=== PATIENT | male | born 1985 | race Caucasian/White ===

== ENCOUNTER 2017-10-23 15:21 | Emergency (ER) | payer MEDICAID, OTHER ==
[~2017-10-23] VITALS: Ht 6038.7 cm; Wt 74.8 kg
[2017-10-23] MEDS ORDERED: thiamine 100mg tablet PO ONE (15:30)
[2017-10-23] MEDS ORDERED: phenobarbital inj 260 MG in normal saline 100ml IV soln 99 ML IV STA (15:30)
[2017-10-23] MEDS ORDERED: normal saline 1000ML IV soln IVB ONE (15:30)
[2017-10-23] MEDS ORDERED: magnesium oxide 400mg tablet PO ONE (15:30)
[2017-10-23 15:53] LABS: URINE AMPHETAMINE SCREEN NEGATIVE (Neg); URINE BARBITUATE SCREEN NEGATIVE (Neg); URINE BENZODIAZEPINES SCREEN NEGATIVE (Neg); URINE CANNABINOID SCREEN NEGATIVE (Neg); URINE COCAINE SCREEN NEGATIVE (Neg); URINE METHADONE SCREEN NEGATIVE (Neg); URINE OPIATE SCREEN NEGATIVE (Neg); URINE PHENCYCLIDINE SCREEN NEGATIVE (Neg)
[2017-10-23 16:02] LABS: BASOPHILS % (AUTO) 0.3 % (0-1); EOSINOPHILS # (AUTO) 0.1 X10'3 (0-0.9); EOSINOPHILS % (AUTO) 0.8 % (0-6); HEMATOCRIT 48.8 % (42.0-52.0); HEMOGLOBIN 17.2 g/dl (14.0-17.9); LYMPHOCYTES # (AUTO) 2.1 X10'3 (1.1-4.8); LYMPHOCYTES % (AUTO) 20.4 % (21-51); MEAN CORPUSCULAR HEMOGLOBIN 30.4 PG (27.0-31.0); MEAN CORPUSCULAR HGB CONC 35.3 % (33.0-36.5); MEAN PLATELET VOLUME 6.9 FL (7.4-10.4); MONOCYTES # (AUTO) 0.3 X10'3 (0-0.9); MONOCYTES % (AUTO) 3.3 % (2-12); NEUTROPHILS # (AUTO) 7.7 X10'3 (1.8-7.7); NEUTROPHILS % (AUTO) 75.2 % (42-75); PLATELET COUNT 278 X10'3 (140-440); RED BLOOD COUNT 5.68 X10'6 (4.70-6.10); WHITE BLOOD COUNT 10.2 X10'3 (4.5-11.0)
[2017-10-23 16:24] LABS: ALANINE AMINOTRANSFERASE 39 U/L (12-78); ALBUMIN 4.9 G/DL (3.4-5.0); ALBUMIN/GLOBULIN RATIO 1.5 (1.1-1.5); ALKALINE PHOSPHATASE 100 IU/L (46-116); ANION GAP 9 (8-16); ASPARTATE AMINO TRANSFERASE 25 U/L (10-37); BILIRUBIN,TOTAL 0.6 MG/DL (0.1-1.0); BLOOD UREA NITROGEN 11 MG/DL (7-18); BUN/CREATININE RATIO 11.3 (5.4-32.0); CALCIUM 9.4 MG/DL (8.5-10.1); CHLORIDE 104 MMOL/L (99-107); CREATININE 0.97 MG/DL (0.60-1.10); ETHANOL 0.299 GM/DL (0.0-0.010); GLUCOSE 120 MG/DL (70-104); MAGNESIUM 2.4 MG/DL (1.5-2.4); POTASSIUM 3.7 MMOL/L (3.5-5.1); SODIUM 143 MMOL/L (135-145); TOTAL PROTEIN 8.1 G/DL (6.4-8.2); eGFR 89 ML/MIN
[2017-10-24] MEDS ORDERED: TRAZ-146 PO (00:39)
[2017-10-24] MEDS ORDERED: traZODone 50mg tablet PO PRN (00:50)
[2017-10-24 09:23] VITALS: BP 121/79
== END 2017-10-24 09:27 | disposition home or self-care (01) ==
LOC: ER 15:21
DX: F10.239 Alcohol dependence with withdrawal, unspecified (principal); F10.229 Alcohol dependence with intoxication, unspecified; R45.851 Suicidal ideations; F15.10 Other stimulant abuse, uncomplicated; F14.10 Cocaine abuse, uncomplicated; F32.9 Major depressive disorder, single episode, unspecified; F41.9 Anxiety disorder, unspecified; F29 Unspecified psychosis not due to a substance or known physiological condition; F12.10 Cannabis abuse, uncomplicated; Z60.2 Problems related to living alone; Z59.0 Homelessness; Z56.0 Unemployment, unspecified; Z88.8 Allergy status to other drugs, medicaments and biological substances; Y90.0 Blood alcohol level of less than 20 mg/100 ml
CPT/HCPCS: 36415; 80053; 80305; 80320; 83735; 84443; 85025; 93005; 96361; 96365; 99285; J2560; J7030